=== PATIENT | female | born 1970 | race Caucasian/White ===

== ENCOUNTER 2024-05-17 11:20 | Outpatient (AMB) | payer OTHER, SELFPAY ==
--- NOTE | 2024-05-17 11:29 | A.OFFPC_ITS ---
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 Intake Note: New patient visit Variety Saw Operator Required: No Allergies No Known Allergies Allergy (Verified 05/17/24 11:42) Medication List - Last Reconciled 05/17/24 by Luly Cody PA-C bupropion HCl XL mg PO DAILY bupropion HCl XL mg PO DAILY Tobacco use date assessed: 05/17/24 Dental Screening Dental Screen Date: 05/17/24 Did you have a dental visit in the last 12 months?: Yes Did you have a dental problem in the last 6 months where you did not have access to dental care?: No Was dental information given to patient?: Patient has dentist HPI feather edger est care HPI Details Pt is a 53 y/o female with a hx of depression, obesity, chronic low back pain, bilateral hand pain GERD, and bilateral carotid stenosis presenting today to [facility]. She is transferring from [facility]. CV: bp wnl today. She states her cholesterol has been elevated in the past but managed with diet. She states 10 or so years ago had a carotid u/s at [facility] and was told they were moderately narrowed. She denies any chest pain or shortness on breath. She is not a smoker. Mother had heart disease (3 MIs) and lung ca. Musculoskeletal: Bilateral hand pain left worse than right. She states that she has tendonitis in both hands and was following with the hand surgeon at [facility] and had x-rays earlier this year. Around February of this year she tripped walking into work and landed on both hands. She states since then she has exacerbated the joint pains in her hands. States that she plans to make an appointment with her surgeon. She does also complain today of low back pain. It flares up at different times. It radiates across the low back. Does not radiate down the legs. No bowel or bladder dysfunction. She says it different times she feels like her joints swell up and feels stiff. Attributes this to some dietary indiscretions. Believes that she is sensitive to dairy/gluten but is not dairy for your gluten free. General: States that her insurance will cover zepbound and she would like to try this. contrave was ineffective, she is using wellbutrin and has not noticed any difference. Believes that she has tried phentermine. Has tried mtgq-kpn-mwdvzhf supplements. She has tried hypnosis, low carb diet and keto diet with temporary improvement but does typically gained back the weight. She is currently eating healthy and trying to exercise but has a hard time exercising with her increased weight and joint pains. She would like to see a invoice control clerk. 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 Mammo: Ao-rg-ykcu-goes to [place] Pap: Nm-cm-rkio-has been menopausal for 7 years Bone density: Has never had 1 Colonoscopy: Did a Cologuard 3 years ago. [facility] Medical History (Updated 05/17/24 @ 12:11 by Luly Cody PA-C) History of verrucae (wart) excision Surgical History (Updated 05/17/24 @ 11:47 by Desiree Barroso CMA) History of bunionectomy of both great toes H/O left breast biopsy Family History (Updated 05/17/24 @ 11:48 by Desiree Barroso CMA) Father Dementia Anxiety Diabetes Mother Depression Anxiety Heart attack Other FH: mental illness Social History Housing: House Alcohol intake: current Patient Tobacco Use Status: Never used Tobacco e-Cigarette/Vaping Use: Never Used service: No Current occupational status: employed 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 1. Little interest or pleasure in doing things: not at all 2. Feeling down, depressed, or hopeless: not at all 3. Trouble falling or staying asleep, or sleeping too much: not at all 4. Feeling tired or having little energy: several days 5. Poor appetite or overeating: several days 6. Feeling bad about yourself - or that you are a failure or have let yourself or your family down: not at all 7. Trouble concentrating on things, such as reading the newspaper or watching television: not at all 8. Moving or speaking so slowly that other people could have noticed. Or the opposite - being so fidgety or restless that you have been moving around a lot more than usual: not at all 9. Thoughts that you would be better off or of hurting yourself in some way: not at all Total score: 2 Depression Screening Interpretation: Negative Depression Screening Done: Yes 41932 - PHQ-9 Billing: Yes Source: Developed by Drs. Wiley North, Gloria Alfaro, Rafi Ferguson and colleagues, with an educational an from [employer]. Thrive Questionnaire Date Thrive assessed: 05/10/24 I am a: Patient What is your living situation today?: I have a steady place to live Within the past 12 months, did the food you bought not last and you didn't have the money to get more?: Never true Within the past 12 months, did you worry whether your food would run out before you got money to buy more?: Never true Do you have trouble paying for medicines?: No Do you have trouble getting transportation to medical appointments?: No Do you have trouble paying your heating and electricity bill?: No Do you have trouble taking care of your child, family member or friend?: No Do you have trouble with day-to-day activities such as bathing, preparing meals, shopping, managing finances, etc.?: No Are you currently unemployed and looking for a job?: No Are you interested in more education?: No Please select the resources that you would like help with: None Currently or been in a relationship where the following occur: No concerns reported THRIVE Score: 0 AUDIT C Alcohol Use Questionnaire (AUDIT-C) 1. How often do you have a drink containing alcohol?: 2-3 times a week 2. How many drinks containing alcohol do you have on a typical day when you are drinking?: 1 or 2 3. How often do you have six or more drinks on one occasion?: Never Total Score: 3 SAMANTHA-7 AMB Questionnaire SAMANTHA-7 Date SAMANTHA - 7 assessed: 05/17/24 Feeling nervous, anxious, or on edge: 1 = Several days Not being able to stop or control worryin = Not at all Worrying too much about different things: 0 = Not at all Trouble relaxin = Not at all Being so restless that it is hard to sit still: 0 = Not at all Becoming easily annoyed or irritable: 1 = Several days Feeling afraid as if something awful might happen: 0 = Not at all Total SAMANTHA-7 score (0-4 normal; 5-9 mild; 10-14 moderate; 15-21 severe): 2 Source: Developed by Drs. Wiley North, Gloria Alfaro, Rafi Ferguson and colleagues, with an educational an from [employer]. SAMANTHA-7 Assessment Billing SAMANTHA-7 Assessment Tool: SAMANTHA-7 Assessment 37373 Physical exam (Primary Care) Tobacco/Smoking Status: Tobacco use Status Tobacco use date assessed 05/17/24 05/17/24 11:35 Patient Tobacco Use Status Never used Tobacco 05/17/24 11:35 e-Cigarette/Vaping Use Never Used 05/17/24 11:35 PHQ-9: PHQ-9 Score PHQ-9: Total score 2 05/17/24 11:31 Depression Screening Interpretation: Negative Thrive Assessment: Date of Thrive Assessment Date Thrive assessed 05/10/24 05/17/24 11:31 Currently or been in a relationship where the following occur: No concerns reported Coding Level of Care Code New Pt Level 5 (73172) Complex EM visit Add On G2211 Diagnoses Obesity (BMI 30.0-34.9) E66.811 Dyslipidemia E78.5 Lumbar pain M54.50 Bilateral hand pain M79.641; M79.642 Polyarthralgia M25.50 Carotid stenosis I65.29 Additional Codes PHQ-9 - 31919 - PHQ-9 Billing: Yes ([id number]) SAMANTHA-7 Assessment Billing - SAMANTHA-7 Assessment Tool: SAMANTHA-7 Assessment 75097 ([id number]) Assessment & Plan Assessment & Plan (1) Obesity (BMI 30.0-34.9): Code(s): E66.811 - Obesity, class 1 Category: Medical Plan: zepbound ordered. We discussed risks, benefits and adverse effects such as nausea, vomiting, diarrhea, constipation, gastroparesis, increased risk of pancreatitis and endocrine malignancy. Referral to invoice control clerk placed. Encouraged low carb diet, increasing protein intake and exercise. (2) Dyslipidemia: Code(s): E78.5 - Hyperlipidemia, unspecified Category: Medical Plan: Lipids ordered. (3) Lumbar pain: Code(s): M54.50 - Low back pain, unspecified Category: Medical Plan: X-ray ordered. We will follow up pending test results. She will try on meloxic am and Flexeril as needed. Discussed risks and benefits and adverse effects of this medication. (4) Bilateral hand pain: Code(s): M79.641 - Pain in right hand; M79.642 - Pain in left hand Category: Medical Plan: As above. Follows with hand specialist (5) Polyarthralgia: Code(s): M25.50 - Pain in unspecified joint Category: Medical Plan: As above. Labs ordered. We will follow up pending test results (6) Carotid stenosis: Code(s): I65.29 - Occlusion and stenosis of unspecified carotid artery Category: Medical Plan: Unsure of which side. Carotid ultrasound ordered. Plan 75 minutes spent in naso-yl-jrse time today and reviewing notes from [facility]. Bone density ordered Colonoscopy ordered Labs ordered. We will follow up pending test results. Short term follow up arranged. Patient understands and agrees with this plan. Orders: Orders Complete Blood Count Auto Diff Today M25.50 - Pain in unspecified joint Hemoglobin A1c Today M25.50 - Pain in unspecified joint, R73.01 - Impaired fasting glucose TSH reflex Free T4 Today M25.50 - Pain in unspecified joint Lipid Panel Today M25.50 - Pain in unspecified joint Vitamin B12 and Folate Today M25.50 - Pain in unspecified joint Ferritin Today M25.50 - Pain in unspecified joint UA CC w/rflx Micro + Cult Today M25.50 - Pain in unspecified joint, Z13.220 - Encounter for screening for lipoid disorders C Reactive Protein Today M25.50 - Pain in unspecified joint Vitamin B1 Today M25.50 - Pain in unspecified joint Vitamin A Today M25.50 - Pain in unspecified joint US carotid duplex BI Today I65.29 - Occlusion and stenosis of unspecified carotid artery, R00.2 - Palpitations ABBI Reflex Titer and Pattern Today M25.50 - Pain in unspecified joint Rheumatoid Factor Today M25.50 - Pain in unspecified joint XR DEXA axial skeleton Today N95.1 - Menopausal and female climacteric states, Z13.820 - Encounter for screening for osteoporosis Comprehensive [place]. Panel Fast Today M25.50 - Pain in unspecified joint Magnesium Today M25.50 - Pain in unspecified joint Erythrocyte Sedimentation Rate Today M25.50 - Pain in unspecified joint Zinc Today M25.50 - Pain in unspecified joint Vitamin D 25-OH Total Today M25.50 - Pain in unspecified joint XR lumbar spine 2-3V Today M54.50 - Low back pain, unspecified Lyme IgG/IgM w/reflex to WB Today M25.50 - Pain in unspecified joint Referrals Nutrition/Dietitian Referral E66.811 - Obesity, class 1, E78.5 - Hyperlipidemia, unspecified, M25.50 - Pain in unspecified joint, M54.50 - Low back pain, unspecified, M79.641 - Pain in right hand, M79.642 - Pain in left hand Gastroenterology Referral Z12.11 - Encounter for screening for malignant neoplasm of colon Medications: New tirzepatide (weight loss) (Zepbound) for 4 weeks 2.5 mg (0.5 mL) subcut QWEEK 2 mL 2RF meloxicam 15 mg PO DAILY 30 tabs 1RF cyclobenzaprine 10 mg PO TID PRN 30 tabs 1RF muscle spasm
[2024-05-17 11:43] VITALS: BP 134/86; PULSE 89; RESP 14; O2SAT 97; BMI 32.3
== END 2024-05-17 12:20 | disposition home or self-care (01) ==
PROVIDERS: PCP Physician Assistant; Visit Provider Physician Assistant
DX: E66.811 Obesity, class 1 (principal); E78.5 Hyperlipidemia, unspecified; M54.50 Low back pain, unspecified; M79.641 Pain in right hand; M79.642 Pain in left hand; M25.50 Pain in unspecified joint; I65.29 Occlusion and stenosis of unspecified carotid artery; Z68.32 Body mass index [BMI] 32.0-32.9, adult

== ENCOUNTER → 2024-05-17 11:20 | Outpatient (BNVA) | payer OTHER, SELFPAY | PROVIDERS: PCP Physician Assistant; Visit Provider Physician Assistant | DX: E66.811 Obesity, class 1 (principal); Z68.32 Body mass index [BMI] 32.0-32.9, adult; E78.5 Hyperlipidemia, unspecified; M54.50 Low back pain, unspecified; M79.641 Pain in right hand; M79.642 Pain in left hand; M25.50 Pain in unspecified joint; I65.29 Occlusion and stenosis of unspecified carotid artery | CPT/HCPCS: 96127 ==

== ENCOUNTER 2024-06-07 09:10 | Outpatient (AMB) | payer OTHER, SELFPAY ==
--- NOTE | 2024-06-07 09:02 | MHC.PC.OV ---
Intake Visit Reasons: review Zepbound Intake Note: Discuss weight loss medication denial. Supervisor Post Wave Required: No Allergies No Known Allergies Allergy (Verified 06/07/24 09:04) Medication List - Last Reconciled 06/07/24 by Luly Cody PA-C bupropion HCl XL mg PO DAILY bupropion HCl XL mg PO DAILY cyclobenzaprine 10 mg PO TID PRN meloxicam 15 mg PO DAILY tirzepatide (weight loss) (Zepbound) 2.5 mg (0.5 mL) subcut QWEEK Tobacco use date assessed: 05/17/24 Dental Screening Dental Screen Date: 05/17/24 HPI review Zepbound HPI Details Pt is a 53 y/o female with a hx of depression, obesity, chronic low back pain, bilateral hand pain GERD, and bilateral carotid stenosis presenting today to to discuss zepbound denial. General: States that her insurance will cover zepbound and she would like to try this. contrave was ineffective but not taken as directed as she is already is using wellbutrin and did not want to take too much wellbutrin. Has tried nvyx-qlc-jvfyiqo supplements. She has tried hypnosis, low carb diet and keto diet with temporary improvement but does typically gained back the weight. She is currently eating healthy and trying to exercise but has a hard time exercising with her increased weight and joint pains. She is scheduled to see weight management program [facility] but not until July. Following with Spray Machine Operator at [facility]. 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 Fax number to [facility] [phone] [facility] Medical History (Updated 05/17/24 @ 12:11 by Luly Cody PA-C) History of verrucae (wart) excision Surgical History (Updated 05/17/24 @ 11:47 by Desiree Barroso CMA) History of bunionectomy of both great toes H/O left breast biopsy Family History (Updated 05/17/24 @ 11:48 by Desiree Barroso CMA) Father Dementia Anxiety Diabetes Mother Depression Anxiety Heart attack Other FH: mental illness Social History (Updated 05/17/24 @ 11:48 by Desiree Barroso CMA) Housing: House Alcohol intake: current Patient Tobacco Use Status: Never used Tobacco e-Cigarette/Vaping Use: Never Used service: No Current occupational status: employed 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 Current occupational exposures/hazards: Yes Cognitive needs: No Hearing needs: No Vision needs: No Questionnaire Thrive Questionnaire Date Thrive assessed: 05/10/24 I am a: Patient What is your living situation today?: I have a steady place to live Within the past 12 months, did the food you bought not last and you didn't have the money to get more?: Never true Within the past 12 months, did you worry whether your food would run out before you got money to buy more?: Never true Do you have trouble paying for medicines?: No Do you have trouble getting transportation to medical appointments?: No Do you have trouble paying your heating and electricity bill?: No Do you have trouble taking care of your child, family member or friend?: No Do you have trouble with day-to-day activities such as bathing, preparing meals, shopping, managing finances, etc.?: No Are you currently unemployed and looking for a job?: No Are you interested in more education?: No Please select the resources that you would like help with: None Currently or been in a relationship where the following occur: No concerns reported THRIVE Score: 0 SAMANTHA-7 AMB Questionnaire SAMANTHA-7 Date SAMANTHA - 7 assessed: 05/17/24 Source: Developed by Drs. Wiley North, Gloria Alfaro, Rafi Ferguson and colleagues, with an educational an from [employer]. Physical exam (Primary Care) Tobacco/Smoking Status: Tobacco use Status Tobacco use date assessed 05/17/24 06/07/24 09:04 Patient Tobacco Use Status Never used Tobacco 06/07/24 09:04 e-Cigarette/Vaping Use Never Used 06/07/24 09:04 Thrive Assessment: Date of Thrive Assessment Date Thrive assessed 05/10/24 06/07/24 09:04 Currently or been in a relationship where the following occur: No concerns reported Telehealth Telehealth Telehealth Platform: Telephone Location of provider rendering services: practice address Location of patient: address on file Patient Identification confirmed using: Name, : Yes Telehealth method: voice only Patient verbally consented to treatment: Yes Patient verbally consented to billing insurance company: Yes Patient informed of any privacy concerns related to visit: Yes Minutes spent on Phone/Video with Pt.: 14 Coding Level of Care Code Tele Est Pt Level 2 (99976) Diagnoses Obesity (BMI 30.0-34.9) E66.811 Polyarthralgia M25.50 Assessment & Plan Assessment & Plan (1) Obesity (BMI 30.0-34.9): Code(s): E66.811 - Obesity, class 1 Category: Medical Plan: zepbound ordered will be seeing weight management has nutrition consults arranged (2) Polyarthralgia: Code(s): M25.50 - Pain in unspecified joint Category: Medical Plan: continue meloxicam Medications: Refilled meloxicam 15 mg PO DAILY 90 tabs 2RF
--- OUTSIDE RECORDS SUMMARY | 2024-06-07 09:48 | XMS_ITS | Clinical Summary ---
Author Organization 175 [facility] Address [address] [place] [address] Phone Care Team Providers Care Production Lapping Machine Operator Name Role Phone Luly Cody Primary Care Provider [phone] Allergies No known active allergies Medications buPROPion XL (WELLBUTRIN XL) 300 mg 24 hr tablet Take 1 tablet (300 mg total) by mouth 1 (one) time each day. Active buPROPion XL (WELLBUTRIN XL) 150 mg 24 hr tablet Take 3 tablets (450 mg total) by mouth daily. Active meloxicam (MOBIC) 15 mg tablet Take 1 tablet (15 mg total) by mouth 1 (one) time each day. 05/17/2024 Active ibuprofen (ADVIL,MOTRIN) 600 mg tablet Take 1 tablet (600 mg total) by mouth every 6 hours as needed. 03/22/2024 Active magnesium oxide 250 mg magnesium tablet Take 1 tablet (250 mg total) by mouth daily. Active B complex-vitamin C-folic acid (JUSTYNA-MICHAEL) 1-60-300 mg-mg-mcg tablet Take 1 tablet by mouth daily. Active Active Problems Problem Noted Date Diagnosed Date Arthritis of carpometacarpal (CMC) joint of left thumb 05/23/2024 Encounters Date Type Department Care Team Description 05/23/2024 4:00 PM EST Office Visit Orthopedic Surgery [facility] [address] [facility] [address] [place] [address] Lisandra Ferrera MD Arthritis of carpometacarpal (CMC) joint of left thumb (Primary Dx) from Last 3 Months Medical History Medical History Date Comments Other acne 10/22/2005 DX:Other acne Social History Tobacco Use Types Packs/Day Years Used Date Smoking Tobacco: Never Smokeless Tobacco: Never Alcohol Use Standard Drinks/Week Comments Yes 0 (1 standard drink = 0.6 oz pur e alcohol) Comments Unknown Sex and Gender Information Value Date Recorded Sex Assigned at Not on file Legal Sex Female 1:40 PM EST Gender Identity Not on file Sexual Orientation Not on file Obstetrics History Last Filed Vital Signs Vital Sign Reading Time Taken Comments Blood Pressure - - Pulse - - Temperature - - Respiratory Rate - - Oxygen Saturation - - Inhaled Oxygen Concentration - - Weight 81.6 kg (180 lb) 05/23/2024 4:20 PM EST Height 162.6 cm (5' 4 ) 05/23/2024 4:20 PM EST Body Mass Index 30.9 05/23/2024 4:20 PM EST Plan of Treatment Health Maintenance Due Date Last Done Comments Hepatitis B Vaccines (1 of 3 - 19+ 3-dose series) 1988 Cervical Cancer Screening: Pap Smear 1990 Pneumococcal Vaccine: 50+ Years (1 of 1 - PCV) 07/14/2019 Zoster Vaccines (1 of 2) 07/14/2019 Colorectal Cancer Screening: Colonoscopy 02/24/2022 Depression Screening 02/24/2022 HIV Screening 02/24/2022 Hepatitis C Screening 02/24/2022 Social Influencers of Health Screening 02/24/2022 COVID-19 Vaccine ( season) 2023 03/25/2021, 2020, 06/22/2020 Breast Cancer Screening 10/25/2025 10/26/19 24, 10/07/2022, 09/16/2021, Additional history exists DTaP,Tdap,and Td Vaccines (2 - Td or Tdap) 08/16/2028 08/16/2018 Influenza Vaccine Completed 12/29/2023, , 02/10/2022, Additional history exists HIB Vaccines Aged Out No longer eligi ble based on patient's age to complete this topic HPV Vaccines Aged Out No longer eligi ble based on patient's age to complete this topic Hepatitis A Vaccines Aged Out No long er eligible based on patient's age to complete this topic IPV Vaccines Aged Out No longer eligi ble based on patient's age to complete this topic MMR Vaccines Aged Out No longer eligi ble based on patient's age to complete this topic Meningococcal ACWY Vaccine Aged Out N o longer eligible based on patient's age to complete this topic Meningococcal B Vacine Aged Out No lo nger eligible based on patient's age to complete this topic Pneumococcal Vaccine: Pediatrics (0 to 5 Years) and At-Risk Patients (6 to 64 Years) Aged Out No longer eligible based on patient's age to complete this topic RSV Immunization Patients Under 20 months Aged Out No longer eligible based on patient's age to complete this topic Varicella Vaccines Aged Out No longer eligible based on patient's age to complete this topic Procedures Procedure Name Priority Date/Time Associated Diagnosis Comments [facility] SCREENING DIGITAL Routine 10/26/2023 10:57 AM EDT Encounter for screening mammogram for malignant neoplasm of breast from Last 3 Months or Most Recently Relevant to Health Maintenance Results * [facility] SCREENING DIGITAL (10/26/2023 10:57 AM EDT) Anatomical Region Laterality Modality Mammography 10/26/2023 10:2 4 AM EDT Narrative 10/26/2023 10:57 AM EDT [facility] Diagnostic Imaging Department [address] [place], [place] [address] Patient: ??CALLIE MALCOLM ?/Age/Sex: 1970 - - Unit#: ??[id number] ? Location/Status: ??SPDIMAM/REG CLI ? Mnemonic/Ordering Site: ??DIGSC/SPMAM Ordering Physician: ??NERY BOWLING NP Aamir Screening Digital - 10/26/23 - 1049 Report Status:Signed HISTORY: The patient is a 53-year-old female presenting for routine screening mammography. FINDINGS: ??Full-field digital mammography of the breasts bilaterally consisting of tomosynthesis in MLO and CC projection is performed in the [employer] 2000-D unit. ??Computer aided detection utilizing the [employer] system was utilized. The breasts are again seen to be composed of a combination of fatty and moderately dense fibroglandular elements (the breasts are heterogeneously dense, which may obscure small masses, category C density as calculated with [employer] software), as also demonstrated on prior studies most recently 10/06/2022 and most remotely 09/05/2019. ??Bilateral punctate and rim calcifications are again seen, without suspicious interval change. ??A tissue marker is again noted in the upper outer quadrant of the left breast. ??There is no suspicious cluster of microcalcifications, mass, or area of architectural distortion. There is no skin thickening or nipple retraction. IMPRESSION: No mammographic evidence of malignancy. A negative mammogram in the presence of a clinically suspicious palpable abnormality does not preclude the possibility of malignancy or alter the indications for biopsy. BIRADS Code Class 2: ??Benign Finding PQRI CPT II 3342F Code 68451, 55628 PQRI 225 CPT II 7025F Dictating Physician: ??RJAEEV REDMOND MD Electronically Signed by: ??RAJEEV REDMOND MD Dic Date/Time: ??10/26/23 1052 Sign date/Time: ??10/26/23 1057 Procedure Note Rajeev Redmond MD - 01/12/2024 [facility] Diagnostic Imaging Department [address] [place] [address] Patient: CALLIE MALCOLM /Age/Sex: 1970 - 53 - F Unit#: [id number] Location/Status: SPDIMA/REG CLI Mnemonic/Ordering Site: [facility] Ordering Physician: NERY BOWLING LOADING UNIT OPERATOR Aamir Screening Digital - 10/26/23 - 1049 Report Status:Signed HISTORY: The patient is a 53-year-old female presenting for routinescreening mammography. FINDINGS: Full-field digital mammography of the breasts bilaterallyconsisting of tomosynthesis in MLO and CC projection is performed in the [employer] 2000-D unit. Computer aided detection utilizing the [employer] system wasutilized. The breasts are again seen to be composed of a combination of fatty and moderately dense fibroglandular elements (the breasts are heterogeneouslydense, which may obscure small masses, category C density as calculated with[employer] software), as also demonstrated on prior studies most recently10/06/2022 and most remotely 09/05/2019. Bilateral punctate and rim calcifications areagain seen, without suspicious interval change. A tissue marker is again notedin the upper outer quadrant of the left breast. There is no suspicious clusterof microcalcifications, mass, or area of architectural distortion. There isno skin thickening or nipple retraction. IMPRESSION: No mammographic evidence of malignancy. A negative mammogram in the presence of a clinically suspicious palpable abnormality does not preclude the possibility of malignancy or alter the indications for biopsy. BIRADS Code Class 2: Benign Finding PQRI CPT II 3342F Code 34904, 85763 PQRI 225 CPT II 7025F Dictating Physician: RAJEEV REDMOND MD Electronically Signed by: RAJEEV REDMOND MD Dic Date/Time: 10/26/23 1052 Sign date/Time: 10/26/23 1057 Nery Bowling NP IMG BI PROCEDURES Final Resu lt from Last 3 Months or Most Recently Relevant to Health Maintenance Insurance [employer] Care Teams Production Lapping Machine Operator Relationship Specialty Start Date End Date Luly Cody PA [address] [place] [address] PCP - General Physician Maintenance Clerk 05/23/24
--- OUTSIDE RECORDS SUMMARY | 2024-06-07 09:48 | XMS_ITS | Encounter Summary ---
Author Organization [facility] Address [address] [place] [address] Care Team Providers Care Compress Trucker Name Role Phone Luly Cody Primary Care Provider [phone] Reason for Visit * Reason Comments Consult Pain, loss of streng th Consult Pain, loss of streng th Encounter Details Date Type Department Care Team (Latest Contact Info) Description 05/23/2024 4:00 PM EST Office Visit Orthopedic Surgery - [place] [address] [facility] [address] [place] [phone] Lisandra Ferrera MD 175 [facility] [address] [place] [phone] Arthritis of carpometacarpal (CMC) joint of left thumb (Primary Dx) Social History Tobacco Use Types Packs/Day Years Used Date Smoking Tobacco: Never Smokeless Tobacco: Never Alcohol Use Standard Drinks/Week Comments Yes 0 (1 standard drink = 0.6 oz pur e alcohol) Comments Unknown Sex and Gender Information Value Date Recorded Sex Assigned at Not on file Legal Sex Female 1:40 PM EST Gender Identity Not on file Sexual Orientation Not on file documented as of this encounter Last Filed Vital Signs Vital Sign Reading Time Taken Comments Blood Pressure - - Pulse - - Temperature - - Respiratory Rate - - Oxygen Saturation - - Inhaled Oxygen Concentration - - Weight 81.6 kg (180 lb) 05/23/2024 4:20 PM EST Height 162.6 cm (5' 4 ) 05/23/2024 4:20 PM EST Body Mass Index 30.9 05/23/2024 4:20 PM EST documented in this encounter Progress Notes * Lisandra Ferrera MD - 05/23/2024 4:00 PM EST CHIEF COMPLAINT/REASON FOR VISIT: Left thumb basal joint pain SUBJECTIVE: Patient is a 53-year-old female who has history of some bilateral basal joint pain. It is been mildto moderate. She is left-hand dominant. More recently she fell while carrying a crockpot and her thumb on the left got jammed. Since then the pain has been somewhat worse. She did get x-rays elsewhere and was told nothing was broken. There is no numbness or tingling. She just notes that increasingly she has difficulty with pinch and grasp. OBJECTIVE: On exam here today there is no obvious redness swelling or induration of either hand. There is no thenar or hypothenar intrinsic atrophy. Skin and nails appear normal. The patient has intact pulses. Patient is able to flex extend abduct adduct the fingers and circumduct both thumbs as well as flex and extend both wrists. There is no evidence of any joint swelling, synovitis, or tenosynovitis along the flexors or extensors. She is able to abduct both thumbs out equally as well as radially. She can do thumb to finger tip pinch across the board of both hands. Pinch strength on the right is 12 pounds and on her dominant left is 19 pounds. She is not tender at the right basal joint when I palpate dorsally or palmarly but she is a little uncomfortable on the left with palpation. There is no instability. No larry crepitance. I pulled up and reviewed her old x-rays from 2022 which showed joint space narrowing, sclerosis, and osteophyte formation at the basal joint. ASSESSMENT: 1. Arthritis of carpometacarpal (CMC) joint of left thumb Patient has progressive arthritic changes of the basal joints. She has become slightly more symptomatic on her dominant left side following a fall in February. That seems to have aggravated the thumb. We reviewed the nonoperative measures including rest, activity modification, NSAIDs, splinting, and careful use of steroid injections when needed for any flare of pain. She does not require surgery.We went over each 1 of these and she indicated understanding of the plan. She does have a splint available to her at home. She will return if things flareup and she needs an injection. PLAN: As needed Lisandra Ferrera MD Patient Active Problem List Diagnosis Arthritis of carpometacarpal (CMC) joint of left thumb Current Outpatient Medications: ibuprofen (ADVIL,MOTRIN) 600 mg tablet, Take 1 tablet (600 mg total) by mouth every 6 hours as needed., Disp: , Rfl: meloxicam (MOBIC) 15 mg tablet, Take 1 tablet (15 mg total) by mouth 1 (one) time each day., Disp: , Rfl: B complex-vitamin C-folic acid (JUSTYNA-MICHAEL) 1-60-300 mg-mg-mcg tablet, Take 1 tablet by mouth daily., Disp: , Rfl: buPROPion XL (WELLBUTRIN XL) 150 mg 24 hr tablet, Take 3 tablets (450 mg total) by mouth daily., Disp: , Rfl: buPROPion XL (WELLBUTRIN XL) 300 mg 24 hr tablet, Take 1 tablet (300 mg total) by mouth 1 (one) time each day., Disp: , Rfl: magnesium oxide 250 mg magnesium tablet, Take 1 tablet (250 mg total) by mouth daily., Disp: , Rfl: documented in this encounter Plan of Treatment Not on file documented as of this encounter Visit Diagnoses Diagnosis Arthritis of carpometacarpal (CMC) joint of left thumb- Primary documented in this encounter Historical Medications * This list may reflect changes made after this encounter. B complex-vitamin C-folic acid (JUSTYNA-MICHAEL) 1-60-300 mg-mg-mcg tablet Take 1 tablet by mouth daily. magnesium oxide 250 mg magnesium tablet Take 1 tablet (250 mg total) by mouth daily. ibuprofen (ADVIL,MOTRIN) 600 mg tablet Take 1 tablet (600 mg total) by mouth every 6 hours as needed. 03/22/2024 meloxicam (MOBIC) 15 mg tablet Take 1 tablet (15 mg total) by mouth 1 (one) time each day. 05/17/2024 buPROPion XL (WELLBUTRIN XL) 150 mg 24 hr tablet Take 3 tablets (450 mg total) by mouth daily. buPROPion XL (WELLBUTRIN XL) 300 mg 24 hr tablet Take 1 tablet (300 mg total) by mouth 1 (one) time each day. added in this encounter Care Teams Compress Trucker Relationship Specialty Start Date End Date Luly Cody PA [address] [place] [address] PCP - General Physician River Rafting Guide 05/23/24 documented as of this encounter
== END 2024-06-07 12:48 | disposition home or self-care (01) ==
LOC: HO.HMCFM 09:10
PROVIDERS: PCP Physician Assistant; Visit Provider Physician Assistant
DX: M25.50 Pain in unspecified joint (principal); E66.811 Obesity, class 1

== ENCOUNTER → 2024-06-07 09:10 | Outpatient (BNVA) | payer OTHER, SELFPAY | PROVIDERS: PCP Physician Assistant; Visit Provider Physician Assistant ==

== ENCOUNTER 2024-06-15 14:05 | Outpatient (AMB) | payer OTHER, SELFPAY ==
[2024-06-15 14:15] VITALS: BMI 31.7
--- NOTE | 2024-06-15 14:15 | A.OFFVIS_ITS ---
VS Expanded 06/15/24 14:15 06/15/24 14:22 Height 5 ft 4 in 5 ft 4 in Weight 184 lb 15.485 oz 185 lb BMI 31.7 31.8 Intake Visit Reasons: Obesity, class 1 Allergies No Known Allergies Allergy (Verified 06/07/24 09:04) Nutrition Presentation Details: Pt presents for MNT for obesity food frequency fruit: 0-1/d fish: 1-xwk ve-2x/wk dairy: 2-3/d starches > 20 /d beverages: water, juice, milk etoh/smoking--- physical activity --- BS Monitoring Most Recent Diabetes Results: No Data to Display GLD-Norlpxk-Tw.Jeor Equation Height: 5 ft 4 in Weight: 185 lb Resting Metabolic Rate: 1427.63 Calculated Activity Level: Sedentary Calories Needed to Maintain Weight: 1713.16 Diagnosis Nutrition problem #1: food nutri know defi As related to (etiology) #1: diagnosis As evidenced by (sign/symptom) #1: high BMI (32 on 05/2024) [facility] Medical History (Updated 05/17/24 @ 12:11 by Luly Cody PA-C) History of verrucae (wart) excision Surgical History (Updated 05/17/24 @ 11:47 by Desiree Barroso CMA) History of bunionectomy of both great toes H/O left breast biopsy Family History (Updated 05/17/24 @ 11:48 by Desiree Barroso CMA) Father Dementia Anxiety Diabetes Mother Depression Anxiety Heart attack Other FH: mental illness Social History (Updated 05/17/24 @ 11:48 by Desiree Barroso CMA) Housing: House Alcohol intake: current Patient Tobacco Use Status: Never used Tobacco e-Cigarette/Vaping Use: Never Used service: No Current occupational status: employed 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 Current occupational exposures/hazards: Yes Cognitive needs: No Hearing needs: No Vision needs: No Assessment & Plan Assessment & Plan (1) Obesity (BMI 30.0-34.9): Code(s): E66.811 - Obesity, class 1 Category: Medical Plan: Wt: 84 Kg ( 06/20 ) Est kcal needs as per MSJ: 1700 (40% carb, 30% protein/fat) Est fluid needs as per 25-30 ml/d: 2500 Est prot per day as per 1 g/kg bw: 84 Recommend fiber intake : 8-10 g per day and gradually increase to 25-28 g per day for women and 35-38 g for men or as tolerated Recommend sodium intake per day : less than 2000 mg Educated patient on: ( R = reviewed V = verbalizes understanding N/R = needs review N/A = not applicable * Food sources of carbohydrate, adequate serving sizes and its role in various health conditions: R * Differences between complex carbohydrates a simple carbohydrates, role of fiber in diet: R * Lean protein sources of foods: R * Differences between types of fats and role in diet (mono on saturated fat fatty acids, saturated fatty acids, trans fats): R V N/R * Food sources of sodium in salt and healthy modifications for heart health in kidney health: R V R/V * Vitamins and minerals: R V N/R * Healthy plate method concept: R * Physical activity: Benefits a precaution: R V N/R Patient Instructions: Practice mindful eating Work on watching total carb , 45 g per meal or less following healthy plate method Coding Level of Care Code Nutr Indiv Intake (01659) Diagnoses Obesity (BMI 30.0-34.9) E66.811 Time Spent (min) 30
[2024-06-27 21:10] VITALS: BMI 31.8
== END 2024-06-15 14:47 | disposition home or self-care (01) ==
LOC: HO.ENCR 14:06
PROVIDERS: PCP Physician Assistant; Visit Provider Dietitian, Registered
DX: E66.811 Obesity, class 1 (principal)

== ENCOUNTER → 2024-06-15 14:05 | Outpatient (BNVA) | payer OTHER, SELFPAY | PROVIDERS: PCP Physician Assistant; Visit Provider Dietitian, Registered | DX: E66.811 Obesity, class 1 (principal); Z71.3 Dietary counseling and surveillance; Z68.31 Body mass index [BMI] 31.0-31.9, adult | CPT/HCPCS: 97802 ==

== ENCOUNTER 2024-06-27 13:52 | Outpatient (REF) | payer OTHER, SELFPAY ==
--- NOTE | ~2024-06-27 | MM_ITS ---
EXAMINATION: DXA BONE DENSITY AXIAL HISTORY: Estrogen deficiency TECHNIQUE: BUKA Dual energy absorptiometry (DEXA) of the lumbar spine, total left hip, and femoral neck was performed. COMPARISON: There are no prior studies for comparison. FINDINGS: The bone mineral density of the lumbar spine is 1.149 with a T-score of -0.3, and a Z-score of -0.1. This is indicative of normal bone mineral density. The bone mineral density of the left total hip is 1.034 with a T-score of 0.2, and a Z-score of 0.4. This is indicative of normal bone mineral density. The bone mineral density of the left femoral neck is 1.065 with a T-score of 0.2, and a Z-score of 0.8. This is indicative of normal bone mineral density. FRACTURE RISK: The FRAX index suggests a risk of major osteoporotic fracture of 4.7%, and of hip fracture 0.1%. MM/XR DEXA axial skeleton IMPRESSION: Based on bone mineral density, and according to World Health Organization (WHO) criteria, the diagnosis is consistent with normal bone mineral density. All bone density values are in grams per centimeter squared (g/cm2). Statistically, 68% of repeat scans fall within 1 SD (+/- 0.010 g/cm2 for AP spine L1-L4) and 1 SD (+/- 0.012 g/cm2 for femur total) FRAX is a trademark of the [employer]'s [employer] Met[employer], a World Health Organization (WHO) Collaborating Center. Electronically signed by: Wiley Wheeler MD 06/27/2024 02:38 PM EDT
--- NOTE | ~2024-06-27 | US_ITS ---
EXAMINATION: BILATERAL CAROTID ULTRASOUND WITH DOPPLER HISTORY: R00.2 - Palpitations, stenosis of carotid COMPARISON: There are no prior studies for comparison. TECHNIQUE: Real time and Color and Spectral doppler ultrasonography of the carotid and vertebral arteries was performed in multiple planes. FINDINGS: No significant plaque is identified. VERTEBRAL FLOW DIRECTION: Antegrade bilaterally. PEAK SYSTOLIC VELOCITIES (in cm/sec): RIGHT: CCA: Prox: 92.6 Dist: 87.6 ICA: Prox: 52.6 Mid: 44.9 Dist: 84.2 ICA/CCA Ratio: 0.91 ECA: 80.6 Peak ICA EDV: 33.8 LEFT: CCA: Prox: 122 Dist: 79.4 ICA: Prox: 49.1 Mid: 67.6 Dist: 80.3 ICA/CCA Ratio: 0.66 ECA: 64.4 Peak ICA EDV: 34.6 US/US carotid duplex BI IMPRESSION: Unremarkable carotid ultrasound. No significant stenosis. Electronically signed by: Wiley Wheeler MD 06/28/2024 07:43 AM EDT
--- OUTSIDE RECORDS SUMMARY | 2024-06-27 16:31 | XMS_ITS | Clinical Summary ---
Author Organization 175 [facility] Address [address] [place] [address] Phone Care Team Providers Care Hardboard Press Operator Name Role Phone Luly Cody Primary Care Provider [phone] Allergies No known active allergies Medications buPROPion [...] 4:00 PM EST Office Visit Orthopedic Surgery [facility] [address] [facility] [address] [place] [address] Lisandra Ferrera MD Arthritis of [...] Procedure Name Priority Date/Time Associated Diagnosis Comments [facility] SCREENING DIGITAL Routine 10/26/2023 10:57 AM EDT Encounter for screening mammogram for malignant neoplasm of breast from Last 3 Months or Most Recently Relevant to Health Maintenance Results * [facility] SCREENING DIGITAL (10/26/2023 10:57 AM EDT) Anatomical Region Laterality Modality Mammography 10/26/2023 10:2 4 AM EDT Narrative 10/26/2023 10:57 AM EDT Diagnostic Imaging Department [address] [place], [place] [id number] Patient: ??CALLIE MALCOLM ?/Age/Sex: 1970 - - Unit#: ??[id number] ? Location/Status: ??SPDIMAM/REG CLI ? Mnemonic/Ordering Site: ??DIGSC/SPMAM Ordering Physician: ??NERY BOWLING NP Aamir Screening Digital - 10/26/23 - 1049 Report Status:Signed HISTORY: The patient is a 53-year-old female presenting for routine screening mammography. FINDINGS: ??Full-field digital mammography of the breasts bilaterally consisting of tomosynthesis in MLO and CC projection is performed in the [employer] 2000-D unit. ??Computer aided detection utilizing the [employer] system was utilized. The breasts are again seen to be composed of a combination of fatty and moderately dense fibroglandular elements (the breasts are heterogeneously dense, which may obscure small masses, category C density as calculated with [employer] software), as also demonstrated on prior studies [...] ??Benign Finding PQRI CPT II 3342F Code 85588, 58191 PQRI 225 CPT II 7025F Dictating Physician: ??RAJEEV REDMOND MD Electronically Signed by: ??RAJEEV REDMOND MD Dic Date/Time: ??10/26/23 1052 Sign date/Time: ??10/26/23 1057 Procedure Note Rajeev Redmond MD - 01/12/2024 Diagnostic Imaging Department [address] [place] [address] Patient: CALLIE MALCOLM /Age/Sex: 1970 - 53 - F Unit#: [id number] Location/Status: SPDIMA/REG CLI Mnemonic/Ordering Site: [facility] Ordering Physician: NERY BOWLING DATA WAREHOUSE CONSULTANT Aamir Screening Digital - 10/26/23 - 1049 Report Status:Signed HISTORY: The patient is a 53-year-old female presenting for routinescreening mammography. FINDINGS: Full-field digital mammography of the breasts bilaterallyconsisting of tomosynthesis in MLO and CC projection is performed in the [employer] 2000-D unit. Computer aided detection utilizing the [...] Benign Finding PQRI CPT II 3342F Code 60920, 85264 PQRI 225 CPT II 7025F Dictating Physician: RAJEEV REDMOND MD Electronically Signed by: RAJEEV REDMOND MD Dic Date/Time: 10/26/23 1052 Sign date/Time: 10/26/23 1057 Nery Bowling NP IMG BI PROCEDURES Final Resu lt from Last 3 Months or Most Recently Relevant to Health Maintenance Insurance [facility] Care Teams Hardboard Press Operator Relationship Specialty Start Date End Date Luly Cody PA [address] [place] [address] PCP - General Physician Kosher Sealer 05/23/24
== END 2024-06-27 13:53 | disposition home or self-care (01) ==
LOC: HO.MAMMO 13:52
PROVIDERS: PCP Physician Assistant; Visit Provider Physician Assistant
DX: Z13.820 Encounter for screening for osteoporosis (principal); N95.1 Menopausal and female climacteric states; R00.2 Palpitations; E28.39 Other primary ovarian failure; I65.29 Occlusion and stenosis of unspecified carotid artery
CPT/HCPCS: 77080; 93880

== ENCOUNTER → 2024-06-27 14:00 | Outpatient (BNV) | payer OTHER, SELFPAY | PROVIDERS: PCP Physician Assistant; Visit Provider Radiology Diagnostic Radiology | DX: R00.2 Palpitations (principal) | CPT/HCPCS: 77080; 93880 ==

== ENCOUNTER 2024-09-26 15:02 | Outpatient (AMB) | payer OTHER, SELFPAY ==
[2024-09-26 15:01] VITALS: BP 124/70; PULSE 106; O2SAT 96; BMI 28.3
--- NOTE | 2024-09-26 15:01 | HO.NEPHOV ---
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 Import Clerk Required: No Accompanied by: Spouse Allergies No Known Allergies Allergy (Verified 09/26/24 15:03) Medication List - Last Reconciled 09/26/24 by Isaías Fairbanks MD bupropion HCl XL mg PO DAILY bupropion HCl XL mg PO DAILY cetirizine (Zyrtec) 10 mg PO DAILY PRN cyclobenzaprine 10 mg PO TID PRN famotidine (Pepcid) 20 mg PO DAILY magnesium 400 mg PO DAILY tirzepatide (weight loss) (Zepbound) 2.5 mg (0.5 mL) subcut QWEEK vitamin B complex 1 tab PO DAILY HPI Comments Details: Pleasant 54-year-old woman referred for mildly elevated serum creatinine The patient has NO history of chronic kidney disease, serum creatinine has been between 0.8 and 1.2 mg/dL for the last year or so. . She had been taking meloxicam daily for three months, and there was a bump in serum creatinine up to 1.1 with a corresponding decrease in EGFR. Meloxicam was stopped on September 04 after noticing the decline in kidney function. The patient has been advised to hydrate adequately, consuming 64 ounces of water daily. Incidental finding of positive antinuclear antibody (ABBI) test, , and she has never tested positive for ABBI before. The patient has experienced weight loss, approximately 20 to 25 pounds since May, attributed to the use of weight management medications such as Wegovy /Zepbound. She notes that much of the weight loss is muscle mass, and she plans to increase protein intake and exercise to address this. The patient reports fatigue, which she attributes to working extra shifts, and denies any other medical problems such as hypertension or diabetes. She reports joint pain, particularly in the fingers, and uses Tylenol Arthritis for relief. 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 Lungs entry equal no rales. Heart S1-S2 heard no gallop or rub. Abdomen soft nontender. Neuro alert awake oriented. No asterixis. Extremities no edema. Results Reviewed Results Reviewed: All results reviewed Urinalysis was benign without any significant protein or RBCs Assessment & Plan Assessment & Plan (1) CKD (chronic kidney disease): Code(s): N18.9 - Chronic kidney disease, unspecified Category: Medical Plan Middle-aged woman with mild increase in BMI, who has been enjoying reasonably good health, was recently found to have an elevation serum creatinine. Urine sediments were benign without any significant protein or blood. She probably had hypoperfusion from use of NSAIDs. No reason to believe that she has any active glomerular nephritis or interstitial disease. Obstructive uropathy is unlikely as well. At present she has stopped the NSAIDs. I expect renal function to improve. We will obtain a 24 hour urine collection to calculate creatinine clearance In the meantime encouraged her to increase p.o. fluid intake. Continue to avoid nephrotoxic agents. I have repeated ABBI as well as DS-ABBI antibody Further workup will be based on the outcome of the baseline investigations. Orders: Orders Basic Metabolic Panel 09/26/24 N18.9 - Chronic kidney disease, unspecified Anti DNA DS Antibody 09/26/24 N18.9 - Chronic kidney disease, unspecified Creatinine Clearance Urine 24U 09/26/24 N18.9 - Chronic kidney disease, unspecified Protein, 24 Hr Urine Group 09/26/24 N18.9 - Chronic kidney disease, unspecified ABBI Reflex Titer and Pattern 09/26/24 N18.9 - Chronic kidney disease, unspecified Coding Level of Care Code New Pt Level 4 (91011) Diagnoses CKD (chronic kidney disease) N18.9
--- OUTSIDE RECORDS SUMMARY | 2024-09-26 15:58 | XMS_ITS | Clinical Summary ---
Author Organization 175 [facility] Address [address] [place] [address] Phone Care Team Providers Care Mid Level Game Designer Name Role Phone Luly Cody Primary Care Provider [phone] Allergies No known active allergies Medications buPROPion [...] carpometacarpal (CMC) joint of left thumb 05/23/2024 Medical History Medical History Date Comments Other [...] age to complete this topic Meningococcal B Vaccine Aged Out No l onger eligible based on patient's age to complete [...] Procedure Name Priority Date/Time Associated Diagnosis Comments [facility] SCREENING DIGITAL Routine 10/26/2023 10:57 AM EDT Encounter for screening mammogram for malignant neoplasm of breast from Last 3 Months or Most Recently Relevant to Health Maintenance Results * [facility] SCREENING DIGITAL (10/26/2023 10:57 AM EDT) Anatomical Region Laterality Modality Mammography 10/26/2023 10:2 4 AM EDT Narrative 10/26/2023 10:57 AM EDT [facility] Diagnostic Imaging Department [address] [place] [address] Patient: CALLIE MALCOLM /Age/Sex: 1970 - 53 - F Unit#: [id number] [facility] Ordering Physician: NERY BOWLING NP Aamir Screening Digital - 10/26/23 - 1049 Report Status:Signed HISTORY: The patient is a 53-year-old female presenting for routine screening mammography. FINDINGS: Full-field digital mammography of the breasts bilaterally consisting of tomosynthesis in MLO and CC projection is performed in the LionWorkse 2000-D unit. Computer aided detection utilizing the iCAD system was utilized. The breasts are again seen to be composed of a combination of fatty and moderately dense fibroglandular elements (the breasts are heterogeneously dense, which may obscure small masses, category C density as calculated with activ8 Intelligencepara software), as also demonstrated on prior studies most recently 10/06/2022 and most remotely 09/05/2019. Bilateral punctate and rim calcifications are again seen, without suspicious interval change. A tissue marker is again noted in the upper outer quadrant of the left breast. There is no suspicious cluster of microcalcifications, mass, or area of architectural distortion. There is no skin thickening or nipple retraction. IMPRESSION: No mammographic evidence of malignancy. A negative mammogram in the presence of a clinically suspicious palpable abnormality does not preclude the possibility of malignancy or alter the indications for biopsy. BIRADS Code Class 2: Benign Finding PQRI CPT II 3342F Code 09947, 57767 PQRI 225 CPT II 7025F Dictating Physician: RAJEEV REDMOND MD Electronically Signed by: RAJEEV REDMOND MD Dic Date/Time: 10/26/23 1052 Sign date/Time: 10/26/23 1057 Procedure Note Rajeev Redmond MD - 01/12/2024 [facility] Diagnostic Imaging Department [address] [place] [address] Patient: CALLIE MALCOLM./Age/Sex: 1970 - 53 - F Unit#: [id number] Location/Status: [facility] CLI Mnemonic/Ordering Site: [facility] Ordering Physician: NERY BOWLING HOTEL FRONT DESK AGENT Aamir Screening Digital - 10/26/23 - 1049 Report Status:Signed HISTORY: The patient is a 53-year-old female presenting for routinescreening mammography. FINDINGS: Full-field digital mammography of the breasts bilaterallyconsisting of tomosynthesis in MLO and CC projection is performed in the [employer]o 2000-D unit. Computer aided detection utilizing the iCAD system wasutilized. The breasts are again seen to be composed of a combination of fatty and moderately dense fibroglandular elements (the breasts are heterogeneouslydense, which may obscure small masses, category C density as calculated withiReFrameBuzz Volpara software), as also demonstrated on prior [...] Benign Finding PQRI CPT II 3342F Code 10872, 06925 PQRI 225 CPT II 7025F Dictating Physician: RAJEEV REDMOND MD Electronically Signed by: RAJEEV REDMOND MD Dic Date/Time: 10/26/23 1052 Sign date/Time: 10/26/23 1057 Nery Bowling NP IMG BI PROCEDURES Final Resu lt from Last 3 Months or Most Recently Relevant to Health Maintenance Insurance [facility] Care Teams Mid Level Game Designer Relationship Specialty Start Date End Date Luly Cody PA [address] [place] [address] PCP - General Physician Trim Stencil Maker 05/23/24
== END 2024-09-26 15:44 | disposition home or self-care (01) ==
LOC: HO.HKA 15:03
PROVIDERS: PCP Physician Assistant; Referring Provider Physician Assistant; Visit Provider Internal Medicine Hypertension Specialist
DX: N18.9 Chronic kidney disease, unspecified (principal)
CPT/HCPCS: 99204

== ENCOUNTER 2024-09-28 14:46 | Outpatient (REF) | payer OTHER, SELFPAY ==
--- OUTSIDE RECORDS SUMMARY | 2024-09-28 14:49 | XMS_ITS | Clinical Summary ---
Author Organization 175 [facility] Address [address] [place] [address] Phone Care Team Providers Care Fishing Rod Mechanic Name Role Phone Luly Cody Primary Care Provider [phone] Allergies No known active allergies Medications buPROPion [...] Procedure Name Priority Date/Time Associated Diagnosis Comments [facility] SCREENING DIGITAL Routine 10/26/2023 10:57 AM EDT Encounter for screening mammogram for malignant neoplasm of breast from Last 3 Months or Most Recently Relevant to Health Maintenance Results * [facility] SCREENING DIGITAL (10/26/2023 10:57 AM EDT) Anatomical Region Laterality Modality Mammography 10/26/2023 10:2 4 AM EDT Narrative 10/26/2023 10:57 AM EDT [facility] Diagnostic Imaging Department [address] [place] [address] Patient: CALLIE MALCOLM /Age/Sex: 1970 - 53 - F Unit#: [id number] [facility] Ordering Physician: NERY BOWLING NP Aamir Screening Digital - 10/26/23 - 1049 Report Status:Signed HISTORY: The patient is a 53-year-old female presenting for routine screening mammography. FINDINGS: Full-field digital mammography of the breasts bilaterally consisting of tomosynthesis in MLO and CC projection is performed in the Integr[employer]ackinge 2000-D unit. Computer aided detection utilizing the iCAD system was utilized. The breasts are again seen to be composed of a combination of fatty and moderately dense fibroglandular elements (the breasts are heterogeneously dense, which may obscure small masses, category C density as calculated with Smart Venturespara software), as also demonstrated on prior studies [...] Benign Finding PQRI CPT II 3342F Code 47249, 16404 PQRI 225 CPT II 7025F Dictating Physician: RAJEEV RDEMOND MD Electronically Signed by: RAJEEV REDMOND MD Dic Date/Time: 10/26/23 1052 Sign date/Time: 10/26/23 1057 Procedure Note Rajeev Redmond MD - 01/12/2024 [facility] Diagnostic Imaging Department [address] [place] [address] Patient: CALLIE MALCOLM./Age/Sex: 1970 - 53 - F Unit#: [id number] Location/Status: [facility] CLI Mnemonic/Ordering Site: [facility] Ordering Physician: NERY BOWLING MGMT SPECIALIST Aamir Screening Digital - 10/26/23 - 1049 Report Status:Signed HISTORY: The patient is a 53-year-old female presenting for routinescreening mammography. FINDINGS: Full-field digital mammography of the breasts bilaterallyconsisting of tomosynthesis in MLO and CC projection is performed in the MedSolutions 2000-D unit. Computer aided detection utilizing the iCAD system wasutilized. The breasts are again seen to be composed of a combination of fatty and moderately dense fibroglandular elements (the breasts are heterogeneouslydense, which may obscure small masses, category C density as calculated withiReI Am Smart Technology Volpara software), as also demonstrated on prior [...] Benign Finding PQRI CPT II 3342F Code 50604, 68054 PQRI 225 CPT II 7025F Dictating Physician: RAJEEV REDMOND MD Electronically Signed by: RAJEEV REDMOND MD Dic Date/Time: 10/26/23 1052 Sign date/Time: 10/26/23 1057 Nery Bowling NP IMG BI PROCEDURES Final Resu lt from Last 3 Months or Most Recently Relevant to Health Maintenance Insurance [facility] Care Teams Fishing Rod Mechanic Relationship Specialty Start Date End Date Luly Cody PA [address] [place] [address] PCP - General Physician Dry Cleaner Presser 05/23/24
[2024-09-28 16:16] LABS: Estimated Glomerular Filt Rate > 60
[2024-09-28 16:19] LABS: Anion Gap 12 (12-20); Blood Urea Nitrogen 20 mg/dL (9-16); Calcium 9.5 mg/dL (8.4-10.2); Carbon Dioxide 25 mmol/L (22-29); Chloride 106 mmol/L (96-108); Estimated Glomerular Filt Rate > 60; Potassium 4.3 mmol/L (3.3-5.1); Sodium 139 mmol/L (135-145)
[2024-09-28 16:37] LABS: Creatinine, mg/dL 108.06
[2024-09-28 17:24] LABS: Total Volume 24 Hour Urine 1125 mL
[2024-09-28 17:25] LABS: Creatinine (CrCl) 0.94 mg/dL (0.5-1.4)
[2024-10-05 12:24] LABS: Anti Nuclear Antibody Screen POSITIVE (NEGATIVE); Anti Nuclear Antibody Titer 1:80 titer
== END 2024-09-28 14:47 | disposition home or self-care (01) ==
LOC: HO.LAB 14:46
PROVIDERS: PCP Physician Assistant; Visit Provider Internal Medicine Hypertension Specialist
DX: N18.9 Chronic kidney disease, unspecified (principal)
CPT/HCPCS: 36415; 80048; 82565; 82575; 84156; 86038; 86039; 86225

== ENCOUNTER 2024-10-11 12:53 | Outpatient (AMB) | payer OTHER, SELFPAY ==
--- NOTE | 2024-10-11 12:36 | A.OFFPC_ITS ---
Intake Visit Reasons: Discuss labs and symptoms after d/c meloxicam Intake Note: Discuss labs, symptoms after stopping meloxicam. Blindstitch Machine Operator Required: No Allergies No Known Allergies Allergy (Verified 09/26/24 15:03) Medication List - Last Reconciled 10/11/24 by Luly Cody PA-C bupropion HCl XL mg PO DAILY bupropion HCl XL 300 mg PO DAILY cetirizine (Zyrtec) 10 mg PO DAILY PRN cyclobenzaprine 10 mg PO TID PRN famotidine (Pepcid) 20 mg PO DAILY magnesium 400 mg PO DAILY tirzepatide (weight loss) (Zepbound) 2.5 mg (0.5 mL) subcut QWEEK vitamin B complex 1 tab PO DAILY Tobacco use date assessed: 10/11/24 Dental Screening Dental Screen Date: 05/17/24 HPI Discuss labs and symptoms after d/c meloxicam HPI Details Pt is a 54 y/o female who presents today for a follow up. Msk: was doing well with meloxicam for joint pains but developed kidney disease likely due to this medication. She states since stopping meloxicam she has low back pain, wrist pain, hand pain and overall feels aches and pains. No illness or vaccines prior to labs or increased joint pains. She does not find tylenol or other otc nsaids effective. Given her joint pains I did order rheum labs and she has positive CASEY and elevated crp. -casey came back positive also in ckd work up General: on zepbound and down 28 lbs. No side effects at 2.5 mg dosing. She would like to increase dose. She is watching her diet and weight closely and monitoring muscle mass/fat loss [facility] Medical History (Updated 10/11/24 @ 13:14 by Luly Cody PA-C) History of verrucae (wart) excision Surgical History History of bunionectomy of both great toes H/O left breast biopsy Family History Father Dementia Anxiety Diabetes Mother Depression Anxiety Heart attack Other FH: mental illness Social History (Updated 10/11/24 @ 12:52 by Desiree Barroso CMA) Housing: House Alcohol intake: current Patient Tobacco Use Status: Never used Tobacco e-Cigarette/Vaping Use: Never Used Use of substances other than those prescribed or required for medical reasons: No service: No 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 How often do you have a drink containing alcohol?: Monthly or less 2. How many drinks containing alcohol do you have on a typical day when you are drinking?: 1 or 2 3. How often do you have six or more drinks on one occasion?: Never Total Score: 1 SAMANTHA-7 AMB Questionnaire SAMANTHA-7 Date SAMANTHA - 7 assessed: 05/17/24 Source: Developed by Drs. Wiley North, Gloria Alfaro, Rafi Ferguson and colleagues, with an educational an from [employer]. Physical exam (Primary Care) Tobacco/Smoking Status: Tobacco use Status Tobacco use date assessed 10/11/24 10/11/24 12:52 Patient Tobacco Use Status Never used Tobacco 10/11/24 12:52 e-Cigarette/Vaping Use Never Used 10/11/24 12:52 Thrive Assessment: Date of Thrive Assessment Date Thrive assessed 05/10/24 10/11/24 12:36 Telehealth Telehealth Telehealth Platform: Telephone Location of provider rendering services: practice address Location of patient: address on file Patient Identification confirmed using: Name, : Yes Telehealth method: voice only Patient verbally consented to treatment: Yes Patient verbally consented to billing insurance company: Yes Patient informed of any privacy concerns related to visit: Yes Minutes spent on Phone/Video with Pt.: 25 Results Reviewed Results Reviewed: Laboratory Tests 09/28/24 09/28/24 06:30 14:59 Creatinine 0.94 Estimated GFR > 60 Ur 24 Hour Volume 1125 Ur Creatinine mg/dL 108.06 Ur Creatinine 24 Hour 1.2 Creat Clearance 24 Hr 89.8 Ur Total Protein 24 Hr < 79 CASEY Screen POSITIVE A CASEY Titer 1:80 H CASEY Titer 2 1:40 H CASEY Pattern A CASEY Pattern 2 A Coding Level of Care Code Tele Est Pt Level 3 (56630) Diagnoses Polyarthralgia M25.50 CKD stage 3a, GFR 45-59 ml/min N18.31 Positive CASEY (antinuclear antibody) R76.8 Assessment & Plan Assessment & Plan (1) Polyarthralgia: Code(s): M25.50 - Pain in unspecified joint Category: Medical Plan: ref to rheum (2) CKD stage 3a, GFR 45-59 ml/min: Code(s): N18.31 - Chronic kidney disease, stage 3a Category: Medical Plan: following with nephrology. discussed likely nsaid related as renal function improved off of nsaid. (3) Positive CASEY (antinuclear antibody): Code(s): R76.8 - Other specified abnormal immunological findings in serum Category: Medical Plan: as above Orders: Referrals Rheumatology Referral M25.50 - Pain in unspecified joint, N18.31 - Chronic kidney disease, stage 3a, R76.8 - Other specified abnormal immunological findings in serum, R79.82 - Elevated C-reactive protein (CRP) Medications: New tirzepatide (weight loss) (Zepbound) 5 mg (0.5 mL) subcut QWEEK 2 mL 4RF Discontinued tirzepatide (weight loss) (Zepbound) for 4 weeks Discontinued Reason: Doctor's Order 2.5 mg (0.5 mL) subcut QWEEK 2 mL 2RF
--- OUTSIDE RECORDS SUMMARY | 2024-10-11 13:45 | XMS_ITS | Clinical Summary ---
Author Organization 175 [facility] Address [address] [place] [address] Phone Care Team Providers Care Ladies Locker Room Attendant Name Role Phone Luly Cody Primary Care Provider [phone] Allergies No known active allergies Medications buPROPion [...] Vaccine ( season) 2023 03/25/2021, 2020, 06/22/2020 Influenza Vaccine (#1) 2024 4, 02/04/2023, 02/10/2022, Additional history exists Breast Cancer Screening 10/25/2025 10/26/19 24, 10/07/2022, 09/16/2021, Additional history exists DTaP,Tdap,and Td Vaccines (2 - Td or Tdap) 08/16/2028 08/16/2018 HIB Vaccines Aged Out No longer eligi [...] Procedure Name Priority Date/Time Associated Diagnosis Comments [facility] SCREENING DIGITAL Routine 10/26/2023 10:57 AM EDT Encounter for screening mammogram for malignant neoplasm of breast from Last 3 Months or Most Recently Relevant to Health Maintenance Results * [facility] SCREENING DIGITAL (10/26/2023 10:57 AM EDT) Anatomical Region Laterality Modality Mammography 10/26/2023 10:2 4 AM EDT Narrative 10/26/2023 10:57 AM EDT [facility] Diagnostic Imaging Department [address] [place] [address] Patient: GOLDCALLIEO.B./Age/Sex: 1970 - 53 - F Unit#: [id number] [facility]Ordering Site[facility] Ordering Physician: NERY BOWLING WATER/WASTEWATER ENGINEER [facility] Screening Digital - 10/26/23 - 1049 Report Status:Signed HISTORY: The patient is a 53-year-old female presenting for routine screening mammography. FINDINGS: Full-field digital mammography of the breasts bilaterally consisting of tomosynthesis in MLO and CC projection is performed in the GE Senographe 2000-D unit. Computer aided detection utilizing the iCAD system was utilized. The breasts are again seen to be composed of a combination of fatty and moderately dense fibroglandular elements (the breasts are heterogeneously dense, which may obscure small masses, category C density as calculated with Chef Volpara software), as also demonstrated on prior [...] Benign Finding PQRI CPT II 3342F Code 35677, 41705 PQRI 225 CPT II 7025F Dictating Physician: RAJEEV REDMOND MD Electronically Signed by: RAJEEV REDMOND MD Dic Date/Time: 10/26/23 1052 Sign date/Time: 10/26/23 1057 Procedure Note Rajeev Redmond MD - 01/12/2024 [facility] Diagnostic Imaging Department [address] [place], [place] [address] Patient: GOLDCALLIE /Age/Sex: 1970 - 53 - Unit#: [id number] Location/Status: [facility] Mnemonic/Ordering Site: [facility] Ordering Physician: NERY BOWLING WATER/WASTEWATER ENGINEER Aamir Screening Digital - 10/26/23 - 1049 Report Status:Signed HISTORY: The patient is a 53-year-old female presenting for routinescreening mammography. FINDINGS: Full-field digital mammography of the breasts bilaterallyconsisting of tomosynthesis in MLO and CC projection is performed in the dineoute 2000-D unit. Computer aided detection utilizing the iCAD system wasutilized. The breasts are again seen to be composed of a combination of fatty and moderately dense fibroglandular elements (the breasts are heterogeneouslydense, which may obscure small masses, category C density as calculated withChef Volpara software), as also demonstrated on prior [...] Benign Finding PQRI CPT II 3342F Code 31803, 06228 PQRI 225 CPT II 7025F Dictating Physician: RAJEEV REDMOND MD Electronically Signed by: RAJEEV REDMOND MD Dic Date/Time: 10/26/23 1052 Sign date/Time: 10/26/23 1057 Nery Bowling NP IMG BI PROCEDURES Final Resu lt from Last 3 Months or Most Recently Relevant to Health Maintenance [facility] Care Teams Ladies Locker Room Attendant Relationship Specialty Start Date End Date Luly Cody PA [address] [place] [address] PCP - General Physician Sales Negotiator 05/23/24
== END 2024-10-11 16:16 | disposition home or self-care (01) ==
LOC: HO.HMCFM 12:53
PROVIDERS: PCP Physician Assistant; Visit Provider Physician Assistant
DX: M25.50 Pain in unspecified joint (principal); N18.31 Chronic kidney disease, stage 3a; R76.8 Other specified abnormal immunological findings in serum

== ENCOUNTER 2024-10-25 13:18 | Outpatient (REF) | payer OTHER, SELFPAY ==
--- OUTSIDE RECORDS SUMMARY | 2024-10-25 13:50 | XMS_ITS | Encounter Summary ---
Author Organization [facility] Address [address] [place] [address] [place] [address] Phone Care Team Providers Care Licensed Embalmer Name Role Phone Nery Mello NP Primary Care Provider + Luly Cody Primary Care Provider +1- [phone] Encounter Details Date Type Department Care Team (Late st Contact Info) Description 05/22/2024 Ancillary Orders [facility], X-Ray - [facility] [address] [place] [address] Luly Cody PA [address] [place] [address] [place] [id number] Low back pain, non-specific (Primary Dx) Social History Tobacco Use Types Packs/Day Years Used Date Smoking Tobacco: Never Smokeless Tobacco: Never Alcohol Use Standard Drinks/Week Comments Not Currently 1 (1 standard drink = 0.6 oz pur e alcohol) Education Answer Date Recorded Are you interested in more education? Not on ave e 07/24/2022 Are you concerned about learning? Not on file 07/24/2022 No 07/24/2022 No 07/24/2022 Digital Access Answer Date Recorded No 08/24/2022 No 08/24/2022 Reliable internet access at home? Not on file 08/24/2022 Device with a working camera? Not on file Intimate Partner Violence Answer Date R ecorded Are you denied basic needs s uch as food, clothing, or medical care? No 03/22/2024 In the past 12 months have y ou been in a relationship with a person who hurts, threatens, or tries to control you? No 03/22/2024 Are you denied basic needs s uch as food, clothing, or medical care? No 03/22/2024 In the past 12 months have y ou been in a relationship with a person who hurts, threatens, or tries to control you? 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 [place] [address] [email or web address] 01/30/2025 10:30 AM EST Office Visit [facility] General Surgical Care [address] [place] [address] [place] [address] Sienna Lord, HOTEL OR MOTEL RECEPTIONIST [address] [facility], 2nd [place] [address] [email or web address] documented as of this encounter Results * XR LUMBOSACRAL SPINE 2-3 VIEWS (05/22/2024 2:14 PM EST) Anatomical Region Laterality Modality L-spine Computed Radiogr aphy 05/23/2024 9:01 AM EST Impressions 05/23/2024 9:01 AM EST Degenerative changes. No acute osseous abnormality. Narrative 05/23/2024 9:01 AM EST XR LUMBOSACRAL SPINE 2-3 VIEWS Referring clinician's provided indication for this examination in Epic: Pain COMPARISON: None FINDINGS: Normal spinal curvature. Mild multilevel disc height loss with endplate osteophytes. Facet osteoarthrosis at L4-5 and L5-S1. Grade 1 L4-5 anterolisthesis. No acute fracture or compression fracture. Procedure Note Sheyla Ohara MD - 05/23/2024 XR LUMBOSACRAL SPINE 2-3 VIEWS Referring clinician's provided indication for this examination in Epic:Pain COMPARISON: None FINDINGS: Normal spinal curvature. Mild multilevel disc height loss with endplateosteophytes. Facet osteoarthrosis at L4-5 and L5-S1. Grade 1 L4-5anterolisthesis. No acute fracture or compression fracture. IMPRESSION: Degenerative changes. No acute osseous abnormality. Luly MAYS IMG XR SPINE Final Resu lt documented in this encounter Visit Diagnoses Diagnosis Low back pain, non-specific- Primary Low back pain, non-specific documented in this encounter Care Teams Licensed Embalmer Relationship Specialty Start Date End Date Nery Mello NP [address] [place] [phone] PCP - General Nurse Practitioner 08/16/18 08/08/24 Luly Cody PA [address] [place] [address] PCP - General Physician Physician/Internist 08/09/24 documented as of this encounter Additional Source Comments The information contained in this document represents components of the legal health record. It is not the complete legal health record.[facility]
--- OUTSIDE RECORDS SUMMARY | 2024-10-25 13:50 | XMS_ITS | Clinical Summary ---
Author Organization 175 [facility] Address [address] [place] [address] Phone Care Team Providers Care Hedis Review Nurse Name Role Phone Luly Cody Primary Care Provider Allergies No known active allergies Medications buPROPion [...] 2) 07/14/2019 Colorectal Cancer Screening: Colonoscopy 02/24/2022 HIV Screening 02/24/2022 Hepatitis C Screening 02/24/2022 Social Influencers of Health Screening 02/24/2022 COVID-19 Vaccine ( season) 2023 03/25/2021, 2020, 06/22/2020 Depression Screening 03/29/2024 Influenza Vaccine (#1) 2024 4, 02/04/2023, 02/10/2022, [...] Procedure Name Priority Date/Time Associated Diagnosis Comments [facility] SCREENING DIGITAL Routine 10/26/2023 10:57 AM EDT Encounter for screening mammogram for malignant neoplasm of breast from Last 3 Months or Most Recently Relevant to Health Maintenance Results * [facility] SCREENING DIGITAL (10/26/2023 10:57 AM EDT) Anatomical Region Laterality Modality Mammography 10/26/2023 10:2 4 AM EDT Narrative 10/26/2023 10:57 AM EDT [facility] Diagnostic Imaging Department [address] [place] [address] Patient: GOLDCALLIEO.B./Age/Sex: 1970 - 53 - F Unit#: [id number] [facility]Ordering Site: [facility] Ordering Physician: NERY BOWLING ACTIVITIES OFFICER [facility] Screening Digital - 10/26/23 - 1049 [...] masses, category C density as calculated with [employer] Volpara software), as also demonstrated on prior [...] Benign Finding PQRI CPT II 3342F Code 73500, 11327 PQRI 225 CPT II 7025F Dictating Physician: RAJEEV REDMOND MD Electronically Signed by: RAJEEV REDMOND MD Dic Date/Time: 10/26/23 1052 Sign date/Time: 10/26/23 1057 Procedure Note Rajeev Redmond MD - 01/12/2024 [facility] Diagnostic Imaging Department [address] [place], [place] [id number] Patient: GOLDCALLIE /Age/Sex: 1970 - 53 - Unit#: [id number] Location/Status: [facility]/REG I Mnemonic/Ordering Site: [facility] Ordering Physician: NERY BOWLING ACTIVITIES OFFICER [facility] Screening Digital - 10/26/23 - 1049 Report Status:Signed HISTORY: The patient is a 53-year-old female presenting for routinescreening mammography. FINDINGS: Full-field digital mammography of the breasts bilaterallyconsisting of tomosynthesis in MLO and CC projection is performed in the [employer] 2000-D unit. Computer aided detection utilizing the iCAD system wasutilized. The breasts are again seen to be composed of a combination of fatty and moderately dense fibroglandular elements (the breasts are heterogeneouslydense, which may obscure small masses, category C density as calculated with[employer] Volpara software), as also demonstrated on prior [...] Benign Finding PQRI CPT II 3342F Code 62774, 42801 PQRI 225 CPT II 7025F Dictating Physician: RAJEEV REDMOND MD Electronically Signed by: RAJEEV REDMOND MD Dic Date/Time: 10/26/23 1052 Sign date/Time: 10/26/23 1057 Nery Bowling NP IMG BI PROCEDURES Final Resu lt from Last 3 Months or Most Recently Relevant to Health Maintenance Insurance [facility] Care Teams Hedis Review Nurse Relationship Specialty Start Date End Date Luly Cody PA [address] [place] [address] PCP - General Physician Engineered Wood Designer 05/23/24
[2024-10-25 14:36] LABS: MANUAL DIFF FLAG NO
[2024-10-25 14:44] LABS: Hematocrit 39.5 % (37.0-47.0); Hemoglobin 13.1 g/dl (12.0-16.0); Imm Gran Abs Auto 0.01 X10*3/uL (0.00-0.03); Imm Gran Pct Auto 0.2 % (0.0-0.4); Lymphocytes Absolute Auto 1.7 X10*3/uL (1.2-4.9); Mean Corpuscular HGB Conc 33.2 g/dl (31.0-35.0); Mean Corpuscular Hemoglobin 31.3 pg (27.0-33.0); Mean Corpuscular Volume 94.3 fL (80.0-98.0); NRBC Abs Auto 0.000 X10*3/uL (0.0-0.012); NRBC Pct Auto 0.0 /100WBC (0.0-0.2); Platelet Count 329 X10*3/uL (160-400); Red Blood Count 4.19 X10*6/uL (4.20-5.50); White Blood Count 5.5 X10*3/uL (4.8-10.8)
[2024-10-25 15:06] LABS: Hemoglobin A1C 114.8382 umol/L; Total Hemoglobin (HGBA1C) 3488.3492 umol/L
[2024-10-25 15:23] LABS: Alanine Aminotransferase 17 U/L (0-31); Albumin Level 4.8 g/dL (3.5-5.0); Alkaline Phosphatase 58 U/L (39-117); Anion Gap 12 (12-20); Aspartate Amino Transferase 20 U/L (5-31); Blood Urea Nitrogen 27 mg/dL (9-16); Calcium 9.5 mg/dL (8.4-10.2); Carbon Dioxide 24 mmol/L (22-29); Chloride 107 mmol/L (96-108); Cholesterol 218 mg/dL (<200); Estimated Glomerular Filt Rate > 60; HDL Cholesterol 57 mg/dL (>40); Magnesium 2.3 mg/dL (1.6-2.6); Potassium 4.4 mmol/L (3.3-5.1); Sodium 139 mmol/L (135-145); Total Protein 6.9 g/dL (6.5-8.0); Triglycerides 82 mg/dL (<150)
[2024-10-25 15:24] LABS: Ferritin 89 ng/mL (10-250)
[2024-10-25 15:38] LABS: Folate 15.1 ng/mL (> or = 4.0); Vitamin B12 1033 pg/mL (200-900)
[2024-10-25 17:57] LABS: Appearance Urine Turbid; Glucose Urine UA Negative (Negative); PH 5.5 (5.0-9.0); Specific Gravity - Urine >= 1.030 (1.005-1.025)
[2024-10-26 09:48] LABS: Lyme Abs Screen <0.90 index
[2024-10-31 22:43] LABS: Anti Nuclear Antibody Screen POSITIVE (NEGATIVE); Anti Nuclear Antibody Titer 1:80 titer
== END 2024-10-25 13:19 | disposition home or self-care (01) ==
LOC: HO.WFDLDS 13:18
PROVIDERS: Visit Provider Physician Assistant
DX: Z13.220 Encounter for screening for lipoid disorders (principal); Z01.84 Encounter for antibody response examination; R73.01 Impaired fasting glucose; M25.50 Pain in unspecified joint
CPT/HCPCS: 36415; 80053; 80061; 81003; 82306; 82607; 82728; 82746; 83036; 83735; 84425; 84443; 84590; 85025; 85652; 86038; 86039; 86140; 86431; 86617; 86618

== ENCOUNTER 2024-10-26 14:59 | Outpatient (AMB) | payer OTHER, SELFPAY ==
[2024-10-26 15:02] VITALS: BP 117/70; PULSE 98; O2SAT 98; BMI 28.0
--- NOTE | 2024-10-26 15:02 | HO.NEPHOV ---
Vital Signs 10/26/24 15:02 Height 5 ft 4 in Weight 163 lb BMI 28.0 BP 117/70 Blood Pressure Location Lt brachial Position Sitting Pulse 98 Pulse Oximetry (%) 98 Oxygen Delivery Method Room Air Intake Visit Reasons: 4wks follow-up w/labs Multiple Tube Winding Machine Operator Required: No Accompanied by: Friend Allergies No Known Allergies Allergy (Verified 10/26/24 15:04) Medication List - Last Reconciled 10/26/24 by Isaías Fairbanks MD bupropion HCl XL mg PO DAILY bupropion HCl XL 300 mg PO DAILY cetirizine (Zyrtec) 10 mg PO DAILY PRN cyclobenzaprine 10 mg PO TID PRN famotidine (Pepcid) 20 mg PO DAILY magnesium 400 mg PO DAILY tirzepatide (weight loss) (Zepbound) 5 mg (0.5 mL) subcut QWEEK vitamin B complex 1 tab PO DAILY Do you need a note to return to daycare/school/sports/work: No HPI Comments Details: Pleasant 54-year-old woman referred for mildly elevated serum creatinine The patient has NO history of chronic kidney disease, serum creatinine has been between 0.8 and 1.2 mg/dL for the last year or so. . She had been taking meloxicam daily for three months, and there was a bump in serum creatinine up to 1.1 with a corresponding decrease in EGFR. Meloxicam was stopped on September 04 after noticing the decline in kidney function. The patient has been advised to hydrate adequately, consuming 64 ounces of water daily. Incidental finding of positive antinuclear antibody (ABBI) test, , and she has never tested positive for ABBI before. The patient has experienced weight loss, approximately 20 to 25 pounds since May, attributed to the use of weight management medications such as Wegovy /Zepbound. She notes that much of the weight loss is muscle mass, and she plans to increase protein intake and exercise to address this. The patient reports fatigue, which she attributes to working extra shifts, and denies any other medical problems such as hypertension or diabetes. She reports joint pain, particularly in the fingers, and uses Tylenol Arthritis for relief. 10/26/24. No new issues. 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 Lungs entry equal no rales. Heart S1-S2 heard no gallop or rub. Abdomen soft nontender. Neuro alert awake oriented. No asterixis. Extremities no edema. Results Reviewed Nephrology Results: Hgb, (12.0-16.0) 13.1 g/dl 10/25/24 WBC, (4.8-10.8) 5.5 X10*3/uL 10/25/24 Plt Count, (160-400) 329 X10*3/uL 10/25/24 Sodium, (135-145) 139 mmol/L 10/25/24 Potassium, (3.3-5.1) 4.4 mmol/L 10/25/24 Chloride, (96-108) 107 mmol/L 10/25/24 Carbon Dioxide, (22-29) 24 mmol/L 10/25/24 BUN, (9-16) 27 mg/dL H 10/25/24 Creatinine, (0.5-1.4) 0.80 mg/dL 10/25/24 Calcium, (8.4-10.2) 9.5 mg/dL 10/25/24 Urine Protein, (Neg-Trace) Negative mg/dL 10/25/24 Assessment & Plan Assessment & Plan (1) CKD (chronic kidney disease): Code(s): N18.9 - Chronic kidney disease, unspecified Category: Medical Plan Middle-aged woman with mild increase in BMI, who has been enjoying reasonably good health, was recently found to have an elevation serum creatinine. Urine sediments were benign without any significant protein or blood. She probably had hypoperfusion from use of NSAIDs. No reason to believe that she has any active glomerular nephritis or interstitial disease. Obstructive uropathy is unlikely as well. At present she has stopped the NSAIDs. I expect renal function to improve. We will obtain a 24 hour urine collection to calculate creatinine clearance In the meantime encouraged her to increase p.o. fluid intake. Continue to avoid nephrotoxic agents. 10/26/24 Renal function is back to baseline. Serum creatinine 0.8. Urine sediments bland. No significant proteinuria or hematuria. Specific gravity elevated more than 1.030. ABBI was positive at 1 is 40 At this point she does not require any further renal workup. Encouraged to avoid NSAIDs or use sparingly. Increase p.o. fluid intake. Returned to clinic p.r.n. Coding Level of Care Code Est Pt Level 4 (63714) Diagnoses CKD (chronic kidney disease) N18.9
--- OUTSIDE RECORDS SUMMARY | 2024-10-26 15:03 | XMS_ITS | Encounter Summary ---
Author Organization [facility] Address [address] [place] [address] [place] [address] Phone Care Team Providers Care Casino Beverage Server Name Role Phone Nery Mello NP Primary Care Provider + Luly Cody Primary Care Provider [phone]- [phone] Encounter Details Date Type Department Care Team (Late st Contact Info) Description 05/22/2024 Ancillary Orders [facility], X-Ray - [facility] [address] [place] [address] Luly Cody PA [address] [place] [address] [place] [address] Low back pain, non-specific (Primary Dx) Social [...] Info) Description 11/14/2024 10:30 AM EDT Nutrition [facility] General Surgical Care [address] [place] [address] [place] [address] Mary Maldonado LDN [address] [place] [address] [email or web address] 01/30/2025 10:30 AM EST Office Visit [facility] General Surgical Care [address] [place] [address] [place] [address] Sienna oLrd, CIRCUS SUPERVISOR [address] [facility], 2nd [place] [address] [email or web address] documented as of this encounter Results * [...] non-specific documented in this encounter Care Teams Casino Beverage Server Relationship Specialty Start Date End Date Nery Mello NP [address] [place] [address] PCP - General Nurse Practitioner 08/16/18 08/08/24 Luly Cody PA [address] [place] [address] PCP - General Physician Irrigation Manager 08/09/24 documented as of this encounter Additional Source Comments The information contained in this document represents components of the legal health record. It is not the complete legal health record.[facility]
--- OUTSIDE RECORDS SUMMARY | 2024-10-26 15:03 | XMS_ITS | Clinical Summary ---
Author Organization 175 [facility] Address [address] [place] [address] Phone Care Team Providers Care Coil Machine Operator Name Role Phone Luly Cody Primary Care Provider [phone] Allergies No known active allergies Medications buPROPion [...] Procedure Name Priority Date/Time Associated Diagnosis Comments [facility] SCREENING DIGITAL Routine 10/26/2023 10:57 AM EDT Encounter for screening mammogram for malignant neoplasm of breast from Last 3 Months or Most Recently Relevant to Health Maintenance Results * [facility] SCREENING DIGITAL (10/26/2023 10:57 AM EDT) Anatomical Region Laterality Modality Mammography 10/26/2023 10:2 4 AM EDT Narrative 10/26/2023 10:57 AM EDT [facility] Diagnostic Imaging Department [address] [place] [address] Patient: GOLDCALLIEO.B./Age/Sex: 1970 - 53 - F Unit#: [id number] [facility]onic[facility]Ordering Site: [facility] Ordering Physician: NERY BOWLING MEDICAL ATTENDANT [facility] Screening Digital - 10/26/23 - 1049 Report [...] masses, category C density as calculated with [employer] Volpara software), as also demonstrated on prior [...] Benign Finding PQRI CPT II 3342F Code 00449, 87347 PQRI 225 CPT II 7025F Dictating Physician: RAJEEV REDMOND MD Electronically Signed by: RAJEEV REDMOND MD Dic Date/Time: 10/26/23 1052 Sign date/Time: 10/26/23 1057 Procedure Note Rajeev Redmond MD - 01/12/2024 [facility] Diagnostic Imaging Department [address] [place], [place] [id number] Patient: GOLDCALLIE /Age/Sex: 1970 - 53 - Unit#: [id number] Location/Status: [facility]/REG I Mnemonic/Ordering Site: [facility] Ordering Physician: NERY BOWLING MEDICAL ATTENDANT Aamir Screening Digital - 10/26/23 - 1049 Report Status:Signed HISTORY: The patient is a 53-year-old female presenting for routinescreening mammography. FINDINGS: Full-field digital mammography of the breasts bilaterallyconsisting of tomosynthesis in MLO and CC projection is performed in the [employer] 2000-D unit. Computer aided detection utilizing the iCAD system wasutilized. The breasts are again seen to be composed of a combination of fatty and moderately dense fibroglandular elements (the breasts are heterogeneouslydense, which may obscure small masses, category C density as calculated with[employer] Volpara software), as also demonstrated on prior [...] Benign Finding PQRI CPT II 3342F Code 74313, 25206 PQRI 225 CPT II 7025F Dictating Physician: RAJEEV REDMOND MD Electronically Signed by: RAJEEV REDMOND MD Dic Date/Time: 10/26/23 1052 Sign date/Time: 10/26/23 1057 Nery Bowling NP IMG BI PROCEDURES Final Resu lt from Last 3 Months or Most Recently Relevant to Health Maintenance Insurance [facility] Care Teams Coil Machine Operator Relationship Specialty Start Date End Date Luly Cody PA [address] [place] [address] PCP - General Physician Media Sales Representative 05/23/24
== END 2024-10-26 16:01 | disposition home or self-care (01) ==
LOC: HO.HKA 15:00
PROVIDERS: PCP Physician Assistant; Visit Provider Internal Medicine Hypertension Specialist
DX: N18.9 Chronic kidney disease, unspecified (principal)
CPT/HCPCS: 99214